=== PATIENT | male | born 2000 | race Caucasian/White ===

== ENCOUNTER 2021-09-14 17:58 | Emergency (ER) | payer MEDICAID, OTHER ==
[~2021-09-14] VITALS: Ht 167.6 cm; Wt 98.0 kg
[2021-09-14] MEDS ORDERED: TETANUS, DIPHTHERIA, PERTUSSIS VAC/PF 0.5ML (>10YR OLD) IM ONE (21:00)
[2021-09-14] MEDS ORDERED: AMOX-424 MT (21:58)
[2021-09-14 22:23] VITALS: BP 110/75
== END 2021-09-14 22:26 | disposition home or self-care (01) ==
LOC: ER 18:06
DX: S61.230A Puncture wound without foreign body of right index finger without damage to nail, initial encounter (principal); W54.0XXA Bitten by dog, initial encounter; Y93.89 Activity, other specified; Y92.89 Other specified places as the place of occurrence of the external cause; Y99.8 Other external cause status; Z90.49 Acquired absence of other specified parts of digestive tract
CPT/HCPCS: 73130; 90471; 90715; 99283

== ENCOUNTER 2021-10-05 21:48 | Emergency (ER) | payer MEDICAID ==
[~2021-10-05] VITALS: Ht 167.6 cm; Wt 85.4 kg
[~2021-10-05 21:48] MED LIST: AMOX-424 MT
[2021-10-06 00:26] VITALS: BP 123/74
[2021-10-06 00:58] LABS: BASOPHILS % 0.5 % (0.0-2.0); EOSINOPHILS % 3.3 % (0.0-5.0); HEMATOCRIT. 45.1 % (42.0-52.0); HEMOGLOBIN. 14.8 g/dL (14.0-18.0); MEAN CORPUSCULAR HEMOGLOBIN 30.5 pg (28.0-32.0); MEAN CORPUSCULAR VOLUME 93.2 fL (80.0-94.0); MEAN PLATELET VOLUME 8.9 fl (7.4-10.4); MONOCYTES % 5.8 % (2.0-8.0); NEUTROPHILS % 41.4 % (40.0-76.0); PLATELET 248 x1000/uL (130-400); RED BLOOD CELL COUNT 4.84 mill/uL (4.7-6.1); RED CELL DISTRIBUTION WIDTH 13.9 % (11.6-14.6)
[2021-10-06 00:59] LABS: CHLORIDE 105 mEq/L (98-107)
[2021-10-06] MEDS ORDERED: LEVETIRACETAM 1000MG PREMIX 100 ML IV ONE (03:45)
[2021-10-06] MEDS ORDERED: KEPP500 MT (03:46)
== END 2021-10-06 05:00 | disposition home or self-care (01) ==
LOC: ER 21:48
DX: G40.909 Epilepsy, unspecified, not intractable, without status epilepticus (principal); Z90.49 Acquired absence of other specified parts of digestive tract
CPT/HCPCS: 36415; 70450; 71045; 80053; 85025; 96374; 99285; J1953; Z7610